=== PATIENT | female | born 1950 | race Caucasian/White ===

== ENCOUNTER 2016-08-27 09:09 | Day surgery (SDC) | payer MEDICARE, BC, OTHER ==
--- NOTE | ~2016-08-27 | EGD ---
EGD REPORT [facility] [address] [place]. [id number] NAME: TERI SANCHEZ : [birth year] STATUS : REG [facility]#: [id number] AGE: 66 ADM/REG DATE : 08/27/16 MR#: [id number] REPORT SERV DATE: 08/27/16 DICTATED BY: OLY MONTEJO DATE: 08/27/16 REPORT STATUS : Draft TRANSCRIBED BY: [facility] DATE: 08/27/16 Endoscopy Center Patient Name: Teri Sanchez Date of : 1950 Attending MD: BERNADETTE MONTEJO MD Procedure Date No Time: 08/27/2016 Procedure: Colonoscopy Indications: Abnormal CT of the GI tract, Showing thickening of the Ascending colon Referring MD: ZAINAB MOREL Medicines: See the Anesthesia note for documentation of the administered medications Complications: No immediate complications. Estimated blood loss: None. Procedure: Pre-Anesthesia Assessment: - ASA Grade Assessment: III - A patient with severe systemic disease. - Prior to the procedure, a History and Physical was performed, and patient medications and allergies were reviewed. The patient's tolerance of previous anesthesia was also reviewed. The risks and benefits of the procedure and the sedation options and risks were discussed with the patient. All questions were answered, and informed consent was obtained. Prior Anticoagulants: The patient has taken Plavix (clopidogrel), last dose was 1 day prior to procedure. After reviewing the risks and benefits, the patient was deemed in satisfactory condition to undergo the procedure. After I obtained informed consent, the scope was passed under direct vision. Throughout the procedure, the patient's blood pressure, pulse, and oxygen saturations were monitored continuously. The PCF [id number] was introduced through the anus and advanced to the terminal ileum. The ileocecal valve, appendiceal orifice and rectum were photographed. The entire colon was examined. The colonoscopy was performed without difficulty. The patient tolerated the procedure well. The quality of the bowel preparation was adequate. Findings: The perianal and digital rectal examinations were normal. A sessile polyp was found in the sigmoid colon. The polyp was 5 mm in size. The polyp was removed with a cold snare. Resection and retrieval were complete. Many medium-mouthed diverticula were found in the sigmoid colon. Non-bleeding internal hemorrhoids were found during retroflexion and EGD REPORT [address] [address] NAME: TERI SANCHEZ : [birth year] STATUS : REG [facility] [place] PAT#: [id number] AGE: 66 ADM/REG DATE : 08/27/16 MR#: [id number] REPORT SERV DATE: 08/27/16 DICTATED BY: OLY MONTEJO DATE: 08/27/16 REPORT STATUS : Draft TRANSCRIBED BY: [facility] DATE: 08/27/16 were Grade I (internal hemorrhoids that do not prolapse). There is no endoscopic evidence of inflammation, mass, stricture or ulcerations in the ascending colon. No other significant abnormalities were identified in a careful examination of the remainder of the colon. The terminal ileum appeared normal. Impression: - One 5 mm polyp in the sigmoid colon. Resected and retrieved. - Diverticulosis in the sigmoid colon. - Non-bleeding internal hemorrhoids. Recommendation: - Patient has a contact number available for emergencies. The signs and symptoms of potential delayed complications were discussed with the patient. Return to normal activities tomorrow. Written discharge instructions were provided to the patient. - High fiber diet indefinitely. - Discharge patient to home. - Continue present medications. - Await pathology results. - Repeat colonoscopy in 5 years for surveillance. Procedure Code(s): --- Professional --- 48245, Colonoscopy, flexible, proximal to splenic flexure; with removal of tumor(s), polyp(s), or other lesion(s) by snare technique Diagnosis Code(s): --- Professional --- D12.5, Benign neoplasm of sigmoid colon K64.0, First degree hemorrhoids K57.30, Diverticulosis of large intestine without perforation or abscess without bleeding R93.3, Abnormal findings on diagnostic imaging of other parts of digestive tract CPT copyright 2013 [employer]. All rights reserved. The codes documented in this report are preliminary and upon social professionals review may be revised to meet current compliance requirements. BERNADETTE MONTEJO MD 08/27/2016 10:37 AM This report has been signed electronically. Number of Addenda: 0 EGD REPORT [facility] [address] [place]. [id number] NAME: TERI SANCHEZ : [birth year] STATUS : REG [facility] [place] PAT#: [id number] AGE: 66 ADM/REG DATE : 08/27/16 MR#: [id number] REPORT SERV DATE: 08/27/16 DICTATED BY: OLY MONTEJO DATE: 08/27/16 REPORT STATUS : Draft TRANSCRIBED BY: [facility] DATE: 08/27/16 Note Initiated On: 08/27/2016 10:04 AM Scope Withdrawal Time 0 hours 9 minutes 19 seconds [id number] [place] [id number]
[~2016-08-27 09:09] MED LIST: GLUCPH PO; LIPITOR20 PO; LISINOPRIL40 MG PO; LOP50 PO; LOPID6 PO; PLAVIX PO; PROTONIX PO
== END 2016-08-27 23:59 | disposition home or self-care (01) ==
LOC: DMU 09:09
PROVIDERS: Internal Medicine Gastroenterology
PROC: 0D5N8ZZ Destruction of Sigmoid Colon, Via Natural or Artificial Opening Endoscopic (ICD-10-PCS; principal; 2016-08-27 10:30)
DX: D12.5 Benign neoplasm of sigmoid colon (principal); K64.0 First degree hemorrhoids; K57.30 Diverticulosis of large intestine without perforation or abscess without bleeding; R93.3 Abnormal findings on diagnostic imaging of other parts of digestive tract; I10 Essential (primary) hypertension; E11.9 Type 2 diabetes mellitus without complications; I25.10 Atherosclerotic heart disease of native coronary artery without angina pectoris; Z95.5 Presence of coronary angioplasty implant and graft; Z79.899 Other long term (current) drug therapy; Z79.84 Long term (current) use of oral hypoglycemic drugs
CPT/HCPCS: 88305